=== PATIENT | male | born 1960 | race Caucasian/White ===

== ENCOUNTER 2018-11-01 18:21 | Emergency (ER) | payer BC ==
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
[2018-11-01] MEDS ORDERED: Acetaminophen/HYDROcodone 325-10 MG Tab PO ONE (18:31)
[2018-11-01] MEDS ORDERED: Ketorolac 60 MG/2 ML SDV IM ONE (18:31)
--- NOTE | 2018-11-01 20:07 | CR ---
INDICATION: Pain. COMPARISON: None. FINDINGS/IMPRESSION: Lumbar spine, 3 views. Age-indeterminate mild compression fractures of L1 and L2, favored to be chronic. No definite acute fracture identified. Scattered small end plate osteophytes. Preservation of lumbar disk spaces. Normal osseous alignment. Dictated by Romero Coe MD @ 11/01/2018 8:06:01 PM Dictated by: Romero Coe MD @ 11/01/2018 20:06:10 (Electronically Signed)
--- NOTE | 2018-11-01 21:12 | CT ---
Indication: Injury Technique: Routine noncontrast CT lumbar spine Please note that all CT scans at this facility use dose modulation, iterative reconstruction, and/or weight-based dosing when appropriate to reduce radiation dose to as low as reasonably achievable. Comparison: Plain films earlier today Findings: There is mild compression involving the inferior endplate of L2 with associated curvilinear areas of increased density within the vertebral body suggesting subtle acute fracture. Chronic wedging the anterior aspect of T12 and L1. Multilevel discogenic spurring. Vacuum disc phenomenon at L5-S1. Vascular calcifications. No pars defect or spondylolisthesis. No paraspinal soft tissue mass. Visualized sacrum intact. Impression: Suspect mild acute fracture involving the inferior endplate of L2. Chronic mild wedging of T12 and L1. Please note that all CT scans at this facility use dose modulation, iterative reconstruction, and/or weight-based dosing when appropriate to reduce radiation dose to as low as reasonably achievable. Dictated by Chris Chow MD @ Nov 01 2018 9:07PM Signed by Dr. Chris Chow @ Nov 01 2018 9:11PM
== END 2018-11-01 21:49 | disposition home or self-care (01) ==
LOC: MW.ED 18:21
DX: S32.019A Unspecified fracture of first lumbar vertebra, initial encounter for closed fracture (principal); S32.029A Unspecified fracture of second lumbar vertebra, initial encounter for closed fracture; Z79.82 Long term (current) use of aspirin; Z79.899 Other long term (current) drug therapy; V86.99XA Unspecified occupant of other special all-terrain or other off-road motor vehicle injured in nontraffic accident, initial encounter
CPT/HCPCS: 72100; 72131; 81001; 96372; 99284; A9270; J1885; 99283

== ENCOUNTER 2023-10-09 15:41 | Emergency (ER) | payer MEDICARE, OTHER ==
[2023-10-09 16:27] LABS: BASOPHILS ABSOLUTE AUTO 0.02 K/uL (0.00-0.20); BASOPHILS PERCENT AUTO 0.2 % (0.0-1.0); EOSINOPHILS ABSOLUTE AUTO 0.04 K/uL (0.00-0.45); EOSINOPHILS PERCENT AUTO 0.5 % (0.0-6.0); HEMOGLOBIN 16.4 g/dL (14.0-18.0); IMMATURE GRAN ABSOLUTE AUTO 0.02 K/uL (0.00-0.05); IMMATURE GRAN PERCENT AUTO 0.2 % (0.0-0.4); LYMPHOCYTES ABSOLUTE AUTO 1.65 K/uL (1.00-4.80); LYMPHOCYTES PERCENT AUTO 20.2 % (24.0-44.0); MEAN CORPUSCULAR HGB CONC 34.9 g/dL (32.0-36.0); MEAN CORPUSCULAR VOLUME 91.6 fL (83.0-99.0); MEAN PLATELET VOLUME 8.9 fL (9.4-12.4); MONOCYTES ABSOLUTE AUTO 0.47 K/uL (0.00-0.80); MONOCYTES PERCENT AUTO 5.8 % (0.0-8.0); NEUTROPHILS ABSOLUTE AUTO 5.97 K/uL (1.80-7.70); NEUTROPHILS PERCENT AUTO 73.1 % (41.0-71.0); PLATELET COUNT,PLT 280 K/uL (150-400); RED BLOOD CELL COUNT 5.13 M/uL (4.52-5.90); WHITE BLOOD CELL COUNT,WBC 8.17 K/uL (3.9-11.3)
[2023-10-09 16:47] LABS: CALCIUM 9.4 mg/dL (8.5-10.1); CARBON DIOXIDE,CO2 25.4 mmol/L (21.0-32.0); CREATININE 1.2 mg/dL (0.8-1.3); EST CRCL DRUG DOSING (CG) 69.36 mL/min; POTASSIUM,K 4.1 mmol/L (3.5-5.1)
== END 2023-10-09 17:26 | disposition home or self-care (01) ==
LOC: MW.ED 15:41
DX: R03.0 Elevated blood-pressure reading, without diagnosis of hypertension (principal); Z75.8 Other problems related to medical facilities and other health care; Z79.82 Long term (current) use of aspirin; Z79.899 Other long term (current) drug therapy
CPT/HCPCS: 36415; 80048; 85025; 99282; 99283